=== PATIENT | male | born 1980 | race Caucasian/White ===

== ENCOUNTER → 2016-04-30 | Outpatient (CLI) | payer OTHER ==
--- NOTE | 2016-05-01 06:55 | REP ---
LEFT KNEE, FIVE VIEWS: HISTORY: Pain. There is no acute fracture or dislocation. The joint spaces are normal in appearance. IMPRESSION: There is no acute fracture or dislocation. Signed by Eitan Marley MD 05/01/2016 08:24 A
== END ==
LOC: M LRY 19:23
PROVIDERS: ATTEND Physician Assistant
DX: M25.562 Pain in left knee (principal)

== ENCOUNTER → 2017-05-07 | Outpatient (REF) | payer OTHER | LOC: M SFHCLERA 16:28 | DX: L02.213 Cutaneous abscess of chest wall (principal) | CPT/HCPCS: 87076 ==